=== PATIENT | female | born 1955 | race Caucasian/White ===

== ENCOUNTER 2018-04-26 19:53 | Emergency (ER) | payer OTHER ==
[~2018-04-26] VITALS: Ht 167.6 cm; Wt 59.1 kg
[2018-04-26 21:55] VITALS: BP 114/61
== END 2018-04-26 21:59 | disposition home or self-care (01) ==
LOC: ER 19:54
DX: T65.891A Toxic effect of other specified substances, accidental (unintentional), initial encounter (principal); T24.512A Corrosion of first degree of left thigh, initial encounter; Y93.89 Activity, other specified; Y92.89 Other specified places as the place of occurrence of the external cause; Y99.8 Other external cause status
CPT/HCPCS: 99281

== ENCOUNTER → 2023-11-06 | Outpatient (CLI) | payer MEDICARE, OTHER ==
[~2023-11-06] VITALS: Ht 163.8 cm; Wt 56.2 kg
[2023-11-06 10:43] LABS: TOTAL HEMOGLOBIN 15.2 G/dl (12.0-16.0)
[2023-11-06 11:31] VITALS: PULSE 70; RESP 13; O2SAT 98
[2023-11-06] MEDS: albuterol 2.5 MG/3 ML nebule NEB ONE (11:38)
== END | disposition home or self-care (01) ==
LOC: RT 10:15
PROVIDERS: ATTEND Internal Medicine
DX: R06.02 Shortness of breath (principal)
CPT/HCPCS: 85018; 94060; 94727; 94729; 94760

== ENCOUNTER 2024-11-13 10:18 | Emergency (ER) | payer MEDICARE, OTHER ==
[~2024-11-13] VITALS: Ht 167.6 cm; Wt 64.1 kg
[2024-11-13 10:40] VITALS: BP 123/54; PULSE 67; RESP 16; O2SAT 98
[2024-11-13] MEDS ORDERED: PRED10TA23 PO (11:18)
[2024-11-13] MEDS ORDERED: AZIT250T12 PO (11:18)
[2024-11-13 11:36] VITALS: TEMP 98
== END 2024-11-13 11:40 | disposition home or self-care (01) ==
LOC: ER 10:19
DX: B34.9 Viral infection, unspecified (principal)
CPT/HCPCS: 99283

== ENCOUNTER 2025-07-29 14:30 | Emergency (ER) | payer MEDICARE, OTHER ==
[~2025-07-29] VITALS: Ht 167.6 cm; Wt 64.4 kg
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
[2025-07-29] MEDS ORDERED: CEPH-585 PO (15:30)
[2025-07-29 15:34] VITALS: BP 112/64; PULSE 78; RESP 16; TEMP 98.2; O2SAT 98
== END 2025-07-29 15:30 | disposition home or self-care (01) ==
LOC: ER 14:31
DX: L03.211 Cellulitis of face (principal)
CPT/HCPCS: 99283